=== PATIENT | male | born 1990 | race African-American/Black ===

== ENCOUNTER 2022-07-28 11:06 | Emergency (ER) | payer OTHER ==
[~2022-07-28] VITALS: Ht 182.9 cm; Wt 70.9 kg
[2022-07-28] MEDS ORDERED: MORPHINE 4 MG/ML 1ML VIAL IV ONE (12:00)
[2022-07-28 12:21] LABS: BASO % 1.2 % (0.0-1.0); EOS # 0.1 10^3/uL (0.0-0.5); EOS % 3.2 % (0.0-3.0); HEMATOCRIT 44.7 % (42.0-52.0); HEMOGLOBIN 15.4 g/dl (13.5-17.5); LYMPH # 1.7 10^3/uL (1.5-5.0); LYMPH % 48.7 % (24.0-44.0); MEAN CORPUSCULAR HEMOGLOBIN 30.9 pg (27.0-33.0); MEAN CORPUSCULAR HGB CONC 34.5 g/dl (32.0-36.5); MEAN CORPUSCULAR VOLUME 89.6 fl (80.0-96.0); MONO # 0.4 10^3/uL (0.0-0.8); MONO % 12.1 % (2.0-8.0); NEUTROPHILS # 1.2 10^3/uL (1.5-8.5); NEUTROPHILS % 34.5 % (36.0-66.0); PLATELET COUNT, AUTOMATED 185 10^3/uL (150-450); RED BLOOD COUNT 4.99 10^6/uL (4.30-6.10); WHITE BLOOD COUNT 3.4 10^3/uL (4.0-10.0)
[2022-07-28] MEDS ORDERED: ISOVUE-370 76% 100ML VIAL As Ordered ONE (12:39)
[2022-07-28 13:56] VITALS: BP 127/74
== END 2022-07-28 13:58 | disposition home or self-care (01) ==
LOC: M ED 11:06
DX: M54.9 Dorsalgia, unspecified (principal); M23.92 Unspecified internal derangement of left knee
CPT/HCPCS: 70450; 71260; 72125; 72128; 72131; 73564; 74177; 80047; 85025; 96374; 99284; Q9967